=== PATIENT | female | born 2000 | race Caucasian/White ===

== ENCOUNTER 2021-02-12 18:11 | Emergency (ER) | payer BC, SELFPAY ==
[2021-02-12 18:24] VITALS: BP 131/82; PULSE 88; RESP 18; TEMP 37.2; O2SAT 99
--- NOTE | 2021-02-12 19:39 | ED.URI ---
HPI - URI/Sore Throat General Chief Complaint: Upper Respiratory Infection Stated Complaint: Possible Covid Positive Time Seen by Provider: 02/12/21 19:41 History of Present Illness HPI Narrative: 20-year-old female presents to express care with complaints of just finding out today that 3 of her coworker just came back positive for Covid Patient is concerned due to known exposure to them in office setting where no mask has been worn recently. Patient states that she is concerned since she has had a cough since Friday of last week and she had a low grade fever of 100.4 last Friday but only for one day. Patient states that she also has been having increase in fatigue and some body aches. Patient denies any sinus congestion or any sinus pressure at this time.Patient has not had any COVID immunization. MD elicited complaint: cough and other (Fatigue) Related Data Home Medications Medication Instructions Recorded Confirmed No Home Medications 02/12/21 02/12/21 Allergies Allergy/AdvReac Type Severity Reaction Status Date / Time No Known Allergies Allergy Unverified 02/12/21 19:45 Review of Systems Review of Systems: Narrative: CONSTITUTIONAL: Denies fever, chills, or sweats at present reports one day of 100.4F temperature EYES: Denies visual changes, redness, or discharge. ENT: Denies rhinorrhea, congestion, sore throat, or otalgia. CARDIOVASCULAR: Denies chest pain, palpitations, or edema. RESPIRATORY: Positive cough denies dyspnea. GASTROINTESTINAL: Denies abdominal pain, nausea, vomiting, or diarrhea. GENITOURINARY: Denies dysuria or hematuria. SKIN: Denies rash or itching. MUSCULOSKELETAL: Denies back pain, joint pain, positive for body aches NEUROLOGIC: Denies headache, numbness, or weakness. PSYCHIATRIC: Positive history of anxiety or depression. All systems reviewed & are unremarkable except as noted in HPI and below PMFSH Past Medical History Medical History (Updated 02/18/21 @ 08:57 by Cecille Jarvis NP) Depression Surgical History Surgical History (Updated 02/18/21 @ 08:57 by Cecille Jarvis NP) H/O elbow surgery repair of bilateral elbow thrown through window Family History Family History (Updated 02/18/21 @ 08:58 by Cecille Jarvis NP) Other No significant family history Social History Social History (Updated 02/18/21 @ 08:55 by Cecille Jarvis NP) Tobacco type: e-cigarettes/vaping Alcohol intake: current Alcohol use details: social Substance use: never Living arrangements: with family Gender identity (if verbalized by the patient): Female Exam Narrative: Exam Narrative: GENERAL: Well-appearing, well-nourished, and in no acute distress. HEAD: Normocephalic, atraumatic. EYES: PERRLA and EOMI. ENT: Nares clear, no rhinorrhea or epistaxis. Mucous membranes moist.TM's normal with good light reflex, throat pink with no lesions or exudates no tonsil enlargement NECK: Supple. no lymphadenopathy CHEST: Clear to auscultation. No respiratory distress.productive cough at intervals SAO2 99% on room air HEART: Regular rate and rhythm. No murmur heard. Normal peripheral pulses. ABDOMEN: Soft, nontender, nondistended, normal active bowel sounds. EXTREMITIES: Normal range of motion. No edema.body aches generalized with fatigue SKIN: Warm, dry, no rash. NEURO: No focal deficits. Alert and oriented x3. Course Vital Signs Vital signs: Vital Signs Temperature 37.2 C 02/12/21 18:24 Pulse Rate 88 02/12/21 18:24 Respiratory Rate 18 02/12/21 18:24 Blood Pressure 131/82 02/12/21 18:24 Pulse Oximetry 99 02/12/21 18:24 Temperature 37.2 C 02/12/21 18:24 Pulse Rate 88 02/12/21 18:24 Respiratory Rate 18 02/12/21 18:24 Blood Pressure 131/82 02/12/21 18:24 Pulse Oximetry 99 02/12/21 18:24 MDM - URI/Sore Throat Differential Diagnosis Differential diagnosis: Likely upper respiratory infection, sinusitis, viral infection, influenza, pharyngiti
[2021-02-13 17:12] LABS: SARS-CoV-2 RNA PCR Negative
== END 2021-02-12 20:03 | disposition home or self-care (01) ==
PROVIDERS: Emergency Provider Registered Nurse; PCP Pediatrics
DX: Z20.822 Contact with and (suspected) exposure to COVID-19 (principal); J06.9 Acute upper respiratory infection, unspecified; F17.200 Nicotine dependence, unspecified, uncomplicated
CPT/HCPCS: 87081; 87804; 87880; 99213; C9803; G0463; U0003; U0005

== ENCOUNTER 2024-04-07 16:11 | Outpatient (CLI) | payer OTHER, SELFPAY ==
--- NOTE | ~2024-04-07 | US_ITS ---
BILATERAL LOWER EXTREMITY VENOUS ULTRASOUND Ordering provider: Lan Giron MD History: . localized edema . Comparison: None. FINDINGS: RIGHT LOWER EXTREMITY VEINS: --COMMON FEMORAL: Patent and free of thrombus. Normal compressibility, phasic flow and augmentation. --PROXIMAL SUPERFICIAL FEMORAL: Patent and free of thrombus. Normal compressibility, phasic flow and augmentation. --DISTAL SUPERFICIAL FEMORAL: Patent and free of thrombus. Normal compressibility, phasic flow and au gmentation. --POPLITEAL: Patent and free of thrombus. Normal compressibility, phasic flow and augmentation. --POSTERIOR TIBIAL: Patent and free of thrombus. Normal compressibility, phasic flow and augmentation . LEFT LOWER EXTREMITY VEINS: --COMMON FEMORAL: Patent and free of thrombus. Normal compressibility, phasic flow and augmentation. --PROXIMAL SUPERFICIAL FEMORAL: Patent and free of thrombus. Normal compressibility, phasic flow and augmentation. --DISTAL SUPERFICIAL FEMORAL: Patent and free of thrombus. Normal compressibility, phasic flow and au gmentation. --POPLITEAL: Patent and free of thrombus. Normal compressibility, phasic flow and augmentation. --POSTERIOR TIBIAL: Patent and free of thrombus. Normal compressibility, phasic flow and augmentation . IMPRESSION: Negative bilateral lower extremity venous US. No deep vein thrombosis. Reviewed, dictated and finalized at location A.
== END 2024-04-07 16:12 | disposition home or self-care (01) ==
LOC: ANHIMG 16:18
PROVIDERS: PCP Internal Medicine; Visit Provider Obstetrics & Gynecology
DX: R60.0 Localized edema (principal)
CPT/HCPCS: 93970